=== PATIENT | female | born 1970 | race Caucasian/White ===

== ENCOUNTER 2023-02-10 07:49 | Emergency (ER) | payer OTHER ==
[2023-02-10 07:55] VITALS: RESP 16
[2023-02-10] MEDS ORDERED: ACETAMINOPHEN TAB 500 MG TAB PO STA (08:04)
--- NOTE | 2023-02-10 08:08 | ED ---
General Adult HPI - General Chief complaint: Fall Stated complaint: fall Time Seen by Provider: 02/10/23 07:52 Source: patient, EMS, RN notes reviewed Mode of arrival: ambulatory Limitations: altered mental status - History of Present Illness Initial comments: Patient is a pleasant 53-year-old female presenting to the emergency department following a fall. Patient comes from [facility]. Patient reportedly does fall frequently. Patient denies any head injury or loss of consciousness. Patient states she fell and landed on her bottom. Patient does have chronic lower back and bilateral hip pain and states she aggravated days. Patient complains of discomfort of right greater than left hip as well as somewhat of the lower back. Patient states lower back really is not much worse than normal and does not want any x-rays of it. Patient does admit to having some neck discomfort when questioned. No chest pain or dyspnea. No abdominal pain. - Related Data Allergies Allergy/AdvReac Type Severity Reaction Status Date / Time codeine Allergy Unknown Verified 02/10/23 07:50 Penicillins Allergy Unknown Verified 02/10/23 07:50 Review of Systems ROS Statement: Those systems with pertinent positive or pertinent negative responses have been documented in the HPI. ROS Other: All systems not noted in ROS Statement are negative. Constitutional: Denies: fever Eyes: Denies: eye pain ENT: Denies: ear pain Respiratory: Denies: cough Cardiovascular: Denies: chest pain Endocrine: Denies: fatigue Gastrointestinal: Denies: abdominal pain Genitourinary: Denies: dysuria Musculoskeletal: Reports: as per HPI Skin: Denies: rash Neurological: Denies: headache, weakness Past Medical History Past Medical History: Hypertension History of Any Multi-Drug Resistant Organisms: None Reported Past Surgical History: No Surgical Hx Reported Past Psychological History: Depression, Schizophrenia Smoking Status: Current every day smoker Past Alcohol Use History: None Reported Past Drug Use History: None Reported General Exam Limitations: altered mental status General appearance: alert, in no apparent distress Head exam: Present: atraumatic, normocephalic Eye exam: Present: normal appearance, PERRL Neck exam: Present: tenderness (Mild diffuse cervical tenderness) Respiratory exam: Present: normal lung sounds bilaterally Cardiovascular Exam: Present: regular rate, normal rhythm GI/Abdominal exam: Present: soft. Absent: tenderness Extremities exam: Present: full ROM, tenderness (Mild tenderness left hip. Mild to moderate tenderness right hip. Distally extremity are neurovascularly intact) Back exam: Present: normal inspection. Absent: tenderness Neurological exam: Present: alert, CN II-XII intact. Absent: motor sensory deficit Expanded Neurological exam: Present: protecting the airway Motor strength exam: RUE: 5, LUE: 5, RLE: 5, LLE: 5 Eye Response: (4) open spontaneously Motor Response: (6) obeys commands Verbal Response: (5) oriented Psychiatric exam: Present: normal affect, normal mood Skin exam: Present: normal color Course Vital Signs 02/10/23 07:50 Temperature 98.6 F Pulse Rate 103 H Respiratory 16 Rate Blood Pressure 133/76 O2 Sat by Pulse 94 L Oximetry Medical Decision Making - Medical Decision Making Was pt. sent in by a medical professional or institution ([facility], CONTRACT ATTORNEY, urgent care, hospital, or jail...) When possible be specific @ -Patient was sent from [facility] Did you speak to anyone other than the patient for history (EMS, parent, family, police, friend...)? What history was obtained from this source @ -No Did you review nursing and triage notes (agree or disagree)? Why? @ -I reviewed and agree with nursing and triage notes Were old charts reviewed (outside hosp., previous admission, EMS record, old EKG, old radiological studies, urgent care reports/EKG's, jail records)? Report findings @ -No old charts were reviewed Differential Diagnosis (chest pain, altered mental status, abdominal pain women, abdominal pain men, vaginal bleeding, weakness, fever, dyspnea, syncope, headache, dizziness, GI bleed, back pain, seizure, CVA, palpatations, mental health)? @ -not applicable EKG interpreted by me (3pts min.). @ -As above X-rays interpreted by me (1pt min.). @ -X-ray pelvis including bilateral hips does not reveal acute abnormality CT interpreted by me (1pt min.). @ -Report reviewed U/S interpreted by me (1pt. min.). @ -None done What testing was considered but not performed or refused? (CT, X-rays, U/S, labs)? Why? @ -None What meds were considered but not given or refused? Why? @ -None Did you discuss the management of the patient with other professionals (professionals i.e. Dr., PA, CONTRACT ATTORNEY, lab, RT, psych nurse, social work lecturer, trial lawyer, teacher, chief administrative officer, returned case inspector)? Give summary @ -Sheet Finisher later arrived and was updated on results and need for follow-up Was smoking cessation discussed for >3mins.? @ -No Was critical care preformed (if so, how long)? @ -No Were there social determinants of health that impacted care today? How? (Homelessness, low income, unemployed, alcoholism, drug addiction, transportation, low edu. Level, literacy, decrease access to med. care, [facility], rehab)? @ -No Was there de-escalation of care discussed even if they declined (Discuss DNR or withdrawal of care, Hospice)? DNR status @ -No What co-morbidities impacted this encounter? (DM, HTN, Smoking, COPD, CAD, Cancer, CVA, ARF, Chemo, Hep., AIDS, mental health diagnosis, sleep apnea, morbid obesity)? @ -None Was patient admitted / discharged? Hospital course, mention meds given and route, prescriptions, significant lab abnormalities, going to OR and other pertinent info. @ -Patient was given Tylenol for discomfort and recommended continue this as needed. Sheet Finisher updated on need for follow-up regarding CT results. Patient will be discharged Undiagnosed new problem with uncertain prognosis? @ -No Drug Therapy requiring intensive monitoring for toxicity (Heparin, Nitro, Insulin, Cardizem)? @ -No Were any procedures done? @ -No Diagnosis/symptom? @ -Fall, hip contusion Acute, or Chronic, or Acute on Chronic? @ -Acute Uncomplicated (without systemic symptoms) or Complicated (systemic symptoms)? @ -default Side effects of treatment? @ -No Exacerbation, Progression, or Severe Exacerbation? @ -No Poses a threat to life or bodily function? How? (Chest pain, [place], [place], pneumonia, PE, COPD, DKA, ARF, appy, cholecystitis, CVA, Diverticulitis, Homicidal, Suicidal, threat to staff... and all critical care pts) @ -No Disposition Clinical Impression: Fall, Contusion, hip Disposition: HOME SELF-CARE Condition: Stable Instructions (If sedation given, give patient instructions): Fall Prevention (ED) Additional Instructions: Please follow-up with primary care physician in the next day or 2 for recheck. Have primary care physician review CT results. Please follow-up with ENT and have them review CT results as well. Return for increased pain, weakness, worsening or change in symptoms or any other concerns. [id number] Tylenol as needed. Ice to affected areas needed. Is patient prescribed a controlled substance at d/c from ED?: No Referrals: Chapito Horowitz NPC [REFERRING] - 1-2 days Cory Gonzalez MD [STAFF PHYSICIAN] - 1-2 days Time of Disposition: 09:12
--- NOTE | 2023-02-10 08:52 | CT ---
EXAMINATION TYPE: CT cervical spine wo con DATE OF EXAM: 02/10/2023 COMPARISON: 03/01/2012 HISTORY: 53-year-old female trauma, Fall, neck pain. TECHNIQUE: Contiguous axial scanning of the cervical spine without IV contrast. Coronal and sagittal reconstructions performed. CT DLP: 381.3 mGycm Automated exposure control for dose reduction was used. FINDINGS: No craniocervical junction abnormality, predental space widening, or prevertebral soft tissue swellin g. Moderate distention plate degenerative change particularly from C5 through T1 levels with bulky anter ior endplate spondylosis which has progressed from 2012. Posterior disc osteophyte complexes at C5-C6 and C6-C7 may contribute to moderate narrowing of the sp inal canal. This has also progressed from prior. Preserved alignment of the cervical spine. No acute fracture seen of the cervical spine. Advanced hypertrophic facet arthropathy particularly towards the left in the upper to mid cervical sp ine. Anterior bridging endplate spondylosis T3-T4. Slight asymmetry right palatine tonsillar hypertrophy. This can be correlated with direct inspection when patient able. A 1.3 cm right thyroid lobe nodule increased from 8 mm second 2012 can't also be further evaluated wi th a thyroid ultrasound. At C3-C4, changes result in moderate to severe left neuroforaminal stenosis. At C5-C6, changes result in moderate left greater than right neuroforaminal stenosis. At C6/C7, changes result in [id number] left neural foraminal stenosis. IMPRESSION: 1. MODERATE SPONDYLOTIC CHANGE ESPECIALLY FROM C5 THROUGH T1 LEVELS HAS PROGRESSED FROM 2012. 2. THERE MAY BE MODERATE NARROWING OF THE SPINAL CANAL AT C5-C6 AND C6-C7. 3. VARIABLE NEUROFORAMINAL STENOSES OUTLINED ABOVE. MODERATE TO SEVERE ON THE LEFT AT C3-C4. 4. NO ACUTE FRACTURE OR MALALIGNMENT SEEN. 5. OUTPATIENT ENT REFERRAL FOR DIRECT VISUALIZATION IN THE REGION OF THE RIGHT PALATINE TONSILS GIVEN ASYMMETRIC SOFT TISSUE PROMINENCE. POSSIBLY RELATED TO ASYMMETRIC HYPERTROPHY. 6. NONEMERGENT THYROID ULTRASOUND TO ASSESS FOR AN ENLARGING 1.3 CM RIGHT THYROID NODULE.
--- NOTE | 2023-02-10 08:52 | XR ---
EXAMINATION TYPE: XR pelvis AP view DATE OF EXAM: 02/10/2023 COMPARISON: NONE HISTORY: Pain The osseous structures are intact and the joint spaces are preserved. No acute fracture is seen. Vi sualized bowel gas pattern is nonspecific. Hypertrophic arthropathy of the hips greater on the left correlate for femoral acetabular impingement. IMPRESSION: 1. No acute fracture. 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
[2023-02-10 09:25] VITALS: BP 131/79; PULSE 91; TEMP 98.1
== END 2023-02-10 09:25 | disposition home or self-care (01) ==
LOC: EEVIPCON 07:49 → EC 07:49
DX: S70.02XA Contusion of left hip, initial encounter (principal); S70.01XA Contusion of right hip, initial encounter; I10 Essential (primary) hypertension; F17.200 Nicotine dependence, unspecified, uncomplicated; Z88.0 Allergy status to penicillin; Z88.6 Allergy status to analgesic agent; W01.0XXA Fall on same level from slipping, tripping and stumbling without subsequent striking against object, initial encounter
CPT/HCPCS: 72125; 72170; 99284

== ENCOUNTER 2023-02-28 13:30 | Emergency (ER) | payer OTHER ==
[2023-02-28 13:38] VITALS: RESP 18
[2023-02-28] MEDS ORDERED: LIDOCAINE 1% INJ 10MG/ML (30 ML VIAL-PF) SQ ONE (14:51)
--- NOTE | 2023-02-28 16:14 | ED ---
General Adult HPI - General Chief complaint: Wound/Laceration Stated complaint: Rt hand injury Time Seen by Provider: 02/28/23 14:02 Source: patient, RN notes reviewed Mode of arrival: EMS Limitations: physical limitation - History of Present Illness Initial comments: 53-year-old female with no significant past medical history presents the emergency department with a chief complaint of right arm. Patient reports she was walking when she tripped and fell over a curb complaining of right hand laceration. She denies hitting her head left consciousness or anticoagulant use. He denies any dizziness, headedness chest pain, shortness of breath, headache, nausea or vomiting. - Related Data Allergies Allergy/AdvReac Type Severity Reaction Status Date / Time codeine Allergy Unknown Verified 02/28/23 13:38 Penicillins Allergy Unknown Verified 02/28/23 13:38 Review of Systems ROS Statement: Those systems with pertinent positive or pertinent negative responses have been documented in the HPI. ROS Other: All systems not noted in ROS Statement are negative. Past Medical History Past Medical History: Hypertension History of Any Multi-Drug Resistant Organisms: None Reported Past Surgical History: No Surgical Hx Reported Past Psychological History: Depression, Schizophrenia Smoking Status: Current every day smoker Past Alcohol Use History: None Reported Past Drug Use History: None Reported General Exam - General Exam Comments Initial Comments: General: Alert, in no acute distress Head: atraumatic normocephalic. Eyes PERRL, EOMI intact, mucous membranes moist Respiratory: Lungs clear to auscultation bilaterally Cardiovascular: Heart rate regular rate and rhythm Abdominal: Soft without guarding or rebound Extremities: Normal inspection with full range of motion and normal capillary refill, right hand with 2 cm laceration to palmar surface at the MTP level 2+ radial pulses distal NVI no crepitus Neuroogic: alert and oriented 3, CN II-XII intact, able to ambulate with steady gait Skin: warm dry and intact with normal color Limitations: physical limitation Course Vital Signs 02/28/23 02/28/23 13:33 16:18 Temperature 96.8 F L 98.0 F Pulse Rate 85 72 Respiratory 18 18 Rate Blood Pressure 127/70 141/84 O2 Sat by Pulse 93 L 95 Oximetry Procedures - Laceration Laceration #1 Consent Obtained: verbal consent Indication: laceration Site: other (Right Palm) Size (cm): 2 Description: linear Depth: simple, single layer Anesthetic Used: lidocaine 1% Anesthesia Technique: local infiltration Amount (mls): 10 Pre-repair: wound explored Type of Sutures: vicryl Size of Sutures: 5-0 Number of Sutures: 5 Technique: simple, interrupted Complications: pain, bleeding, nerve injury Patient Tolerated Procedure: well, no complications Additional Comments: Distal NVI remains intact status post suture placement Medical Decision Making - Medical Decision Making Was pt. sent in by a medical professional or institution (, [facility], urgent care, hospital, or jail...) When possible be specific @ -[No] Did you speak to anyone other than the patient for history (EMS, parent, family, police, friend...)? What history was obtained from this source @ -[No] Did you review nursing and triage notes (agree or disagree)? Why? @ -[I reviewed and agree with nursing and triage notes] Were old charts reviewed (outside hosp., previous admission, EMS record, old EKG, old radiological studies, urgent care reports/EKG's, jail records)? Report findings @ -[No old charts were reviewed] Differential Diagnosis (chest pain, altered mental status, abdominal pain women, abdominal pain men, vaginal bleeding, weakness, fever, dyspnea, syncope, headache, dizziness, GI bleed, back pain, seizure, CVA, palpatations, mental health, musculoskeletal)? @ -[not applicable] EKG interpreted by me (3pts min.). @ -[As above] X-rays interpreted by me (1pt min.). @ -[None done] CT interpreted by me (1pt min.). @ -[None done] U/S interpreted by me (1pt. min.). @ -[None done] What testing was considered but not performed or refused? (CT, X-rays, U/S, labs)? Why? @ -[None] What meds were considered but not given or refused? Why? @ -[None] Did you discuss the management of the patient with other professionals (professionals i.e. [facility], [facility], lab, RT, psych nurse, clinical social work therapist, supervisor front, teacher, adult probation officer, child welfare caseworker)? Give summary @ -[No] Was smoking cessation discussed for >3mins.? @ -[No] Was critical care preformed (if so, how long)? @ -[No] Were there social determinants of health that impacted care today? How? (Homelessness, low income, unemployed, alcoholism, drug addiction, transportation, low edu. Level, literacy, decrease access to med. care, shelter, rehab)? @ -[No] Was there de-escalation of care discussed even if they declined (Discuss DNR or withdrawal of care, Hospice)? DNR status @ -[No] What co-morbidities impacted this encounter? (DM, HTN, Smoking, COPD, CAD, Cancer, CVA, ARF, Chemo, Hep., AIDS, mental health diagnosis, sleep apnea, morbid obesity)? @ -[None] Was patient admitted / discharged? Hospital course, mention meds given and route, prescriptions, significant lab abnormalities, going to OR and other pertinent info. @ -Discharged. This is a 53-year-old female who presents the emergency department with hand laceration. Patient had a thorough history and physical exam performed in the ED. small laceration to right palm. No crepitus noted. Range of motion is intact. 2+ radial pulses bilaterally. Patient had 4 sutures placed for which she tolerated well. Return precautions were discussed at length. Patient discharged in stable condition. Case discussed with [facility]. [facility] who agrees with plan of care Undiagnosed new problem with uncertain prognosis? @ -[No] Drug Therapy requiring intensive monitoring for toxicity (Heparin, Nitro, Insulin, Cardizem)? @ -[No] Were any procedures done? @ -[No] Diagnosis/symptom? @ - Right hand laceration Acute, or Chronic, or Acute on Chronic? @ -Acute Uncomplicated (without systemic symptoms) or Complicated (systemic symptoms)? @ -uncomplicated Side effects of treatment? @ -[No] Exacerbation, Progression, or Severe Exacerbation? @ -[No] Poses a threat to life or bodily function? How? (Chest pain, [place], [place], pneumonia, PE, COPD, DKA, ARF, appy, cholecystitis, CVA, Diverticulitis, Homicidal, Suicidal, threat to staff... and all critical care pts) @ -low likelihood Disposition Clinical Impression: Laceration, Fall Disposition: HOME SELF-CARE Condition: Stable Instructions (If sedation given, give patient instructions): Care For Your Stitches (ED), Laceration (ED) Additional Instructions: Please return to the nearest emergency department in 7-10 days for suture removal Please return to the nearest emergency department with symptoms worsen or persist Is patient prescribed a controlled substance at d/c from ED?: No Referrals: None,Stated [Primary Care Provider] - 1-2 days Time of Disposition: 16:13
[2023-02-28 16:19] VITALS: BP 141/84; PULSE 72; TEMP 98
== END 2023-02-28 16:51 | disposition home or self-care (01) ==
LOC: EC 13:30
DX: S61.411A Laceration without foreign body of right hand, initial encounter (principal); I10 Essential (primary) hypertension; F17.200 Nicotine dependence, unspecified, uncomplicated; Z88.0 Allergy status to penicillin; Z86.59 Personal history of other mental and behavioral disorders; W01.0XXA Fall on same level from slipping, tripping and stumbling without subsequent striking against object, initial encounter
CPT/HCPCS: 99284; 12001; J2001

== ENCOUNTER 2023-12-08 06:58 | Emergency (ER) | payer MEDICARE, OTHER ==
--- NOTE | 2023-12-08 07:36 | ED ---
General Adult HPI - General Chief complaint: Fever Stated complaint: FEVER Time Seen by Provider: 12/08/23 07:00 Source: patient, EMS, RN notes reviewed Mode of arrival: EMS Limitations: no limitations - History of Present Illness Initial comments: Patient is a pleasant 53-year-old female present to the emergency department not feeling well. Patient states symptoms started yesterday. Patient states she was tested positive for flu. Patient states she feels tired and achy all over. Occasional cough. - Related Data Allergies Allergy/AdvReac Type Severity Reaction Status Date / Time codeine Allergy Unknown Verified 02/28/23 13:38 Penicillins Allergy Unknown Verified 02/28/23 13:38 Review of Systems ROS Statement: Those systems with pertinent positive or pertinent negative responses have been documented in the HPI. ROS Other: All systems not noted in ROS Statement are negative. Constitutional: Reports: fever, chills Eyes: Denies: eye pain ENT: Denies: ear pain Respiratory: Reports: as per HPI, cough Cardiovascular: Denies: chest pain Endocrine: Reports: fatigue Gastrointestinal: Denies: abdominal pain, nausea, vomiting Past Medical History Past Medical History: Hypertension History of Any Multi-Drug Resistant Organisms: None Reported Past Surgical History: No Surgical Hx Reported Past Psychological History: Depression, Schizophrenia Smoking Status: Current every day smoker Past Alcohol Use History: None Reported Past Drug Use History: None Reported General Exam Limitations: no limitations General appearance: alert, in no apparent distress Head exam: Present: atraumatic Eye exam: Present: normal appearance ENT exam: Present: normal oropharynx Neck exam: Present: normal inspection Respiratory exam: Present: normal lung sounds bilaterally Cardiovascular Exam: Present: tachycardia GI/Abdominal exam: Present: soft. Absent: tenderness Extremities exam: Present: normal inspection Neurological exam: Present: alert, oriented X3. Absent: motor sensory deficit Expanded Eye Response: (4) open spontaneously Motor Response: (6) obeys commands Verbal Response: (5) oriented Psychiatric exam: Present: normal affect, normal mood Skin exam: Present: normal color Course Vital Signs 12/08/23 12/08/23 12/08/23 07:04 07:08 08:07 Temperature 104 F H 101.6 F H Pulse Rate 124 H 117 H Respiratory 20 22 18 Rate Blood Pressure 151/94 O2 Sat by Pulse 97 98 Oximetry 12/08/23 09:00 Temperature 100.5 F H Pulse Rate 118 H Respiratory 20 Rate Blood Pressure 112/77 O2 Sat by Pulse 92 L Oximetry Medical Decision Making - Medical Decision Making Was pt. sent in by a medical professional or institution ([facility], TRACK REPAIR WORKER, urgent care, hospital, or prison...) When possible be specific @ -Patient comes from a intermediate Did you speak to anyone other than the patient for history (EMS, parent, family, police, friend...)? What history was obtained from this source @ -Laborer Mine arrives later and provides history including patient being very fatigued and positive diagnosis of influenza yesterday. Did you review nursing and triage notes (agree or disagree)? Why? @ -Yes reviewed and agree Were old charts reviewed (outside hosp., previous admission, EMS record, old EKG, old radiological studies, urgent care reports/EKG's, prison records)? Report findings @ -Previous chest x-ray reviewed Differential Diagnosis (chest pain, altered mental status, abdominal pain women, abdominal pain men, vaginal bleeding, weakness, fever, dyspnea, syncope, headache, dizziness, GI bleed, back pain, seizure, CVA, palpatations, mental health, musculoskeletal)? @ -Differential Fever: Pneumonia, viral URI, endocarditis, myocarditis, pericarditis, otitis, sinusitis, peritonsillar Abscess, retropharyngeal Abscess, epiglottitis, peritonitis, appendicitis, Ling cystitis, diverticulitis, hepatitis, colitis, UTI, PID, TOA, pyelonephritis, prostatitis, epididymitis, meningitis, encephalit is, pulmonary embolism, CVA, thyroid storm, pancreatitis, adrenal crisis, cavernous sinus thrombosis, this is not meant to be an all-inclusive list. EKG interpreted by me (3pts min.). @ -As above X-rays interpreted by me (1pt min.). @ -Chest x-ray shows nonspecific changes, possible interstitial changes CT interpreted by me (1pt min.). @ -None done U/S interpreted by me (1pt. min.). @ -None done What testing was considered but not performed or refused? (CT, X-rays, U/S, labs)? Why? @ -None What meds were considered but not given or refused? Why? @ -None Did you discuss the management of the patient with other professionals (professionals i.e. , PA, TRACK REPAIR WORKER, lab, RT, psych nurse, social media community manager, journeyman press operator, teacher, mounted police officer, correctional counselor/case manager)? Give summary @ -Laborer Mine also for history and providing results Was smoking cessation discussed for >3mins.? @ -No Was critical care preformed (if so, how long)? @ -No Were there social determinants of health that impacted care today? How? (Homelessness, low income, unemployed, alcoholism, drug addiction, transportation, low edu. Level, literacy, decrease access to med. care, [facility], rehab)? @ -No Was there de-escalation of care discussed even if they declined (Discuss DNR or withdrawal of care, Hospice)? DNR status @ -No What co-morbidities impacted this encounter? (DM, HTN, Smoking, COPD, CAD, Cancer, CVA, ARF, Chemo, Hep., AIDS, mental health diagnosis, sleep apnea, morbid obesity)? @ -None Was patient admitted / discharged? Hospital course, mention meds given and route, prescriptions, significant lab abnormalities, going to OR and other pertinent info. @ -Patient presents with diagnosis of flu and for fever and fatigue and general weakness. Patient received Tylenol Motrin and feels much better. Patient and outdoor illuminating engineer updated on results. Patient is already on Tamiflu Undiagnosed new problem with uncertain prognosis? @ -No Drug Therapy requiring intensive monitoring for toxicity (Heparin, Nitro, Insulin, Cardizem)? @ -No Were any procedures done? @ -No Diagnosis/symptom? @ -Influenza Acute, or Chronic, or Acute on Chronic? @ -Acute Uncomplicated (without systemic symptoms) or Complicated (systemic symptoms)? @ -Default Side effects of treatment? @ -No Exacerbation, Progression, or Severe Exacerbation? @ -No Poses a threat to life or bodily function? How? (Chest pain, [place], [place], pneumonia, PE, COPD, DKA, ARF, appy, cholecystitis, CVA, Diverticulitis, Homicidal, Suicidal, threat to staff... and all critical care pts) @ -No - Lab Data Result diagrams: 12/08/23 07:54 12/08/23 07:54 Lab Results 12/08/23 12/08/23 Range/Units 07:54 07:54 WBC 10.2 (3.8-10.6) k/uL RBC 3.92 (3.80-5.40) m/uL Hgb 13.2 (11.4-16.0) gm/dL Hct 39.5 (34.0-46.0) % MCV 100.8 H (80.0-100.0) fL MCH 33.8 (25.0-35.0) pg MCHC 33.5 (31.0-37.0) g/dL RDW 13.1 (11.5-15.5) % Plt Count 144 L (150-450) k/uL MPV 7.2 Neutrophils % 83 % Lymphocytes % 8 % Monocytes % 7 % Eosinophils % 0 % Basophils % 0 % Neutrophils # 8.5 H (1.3-7.7) k/uL Lymphocytes # 0.8 L (1.0-4.8) k/uL Monocytes # 0.7 (0-1.0) k/uL Eosinophils # 0.0 (0-0.7) k/uL Basophils # 0.0 (0-0.2) k/uL Sodium 138 (137-145) mmol/L Potassium 3.9 (3.5-5.1) mmol/L Chloride 108 H (98-107) mmol/L Carbon Dioxide 23 (22-30) mmol/L Anion Gap 7 mmol/L BUN 10 (7-17) mg/dL Creatinine 0.47 L (0.52-1.04) mg/dL Est GFR (CKD-EPI)AfAm >90 (>60 ml/min/1.73 sqM) Est GFR (CKD-EPI)NonAf >90 (>60 ml/min/1.73 sqM) Glucose 164 H (74-99) mg/dL Calcium 8.1 L (8.4-10.2) mg/dL Total Bilirubin 0.5 (0.2-1.3) mg/dL AST 44 H (14-36) U/L ALT 48 H (4-34) U/L Alkaline Phosphatase 73 (38-126) U/L Total Protein 6.4 (6.3-8.2) g/dL Albumin 3.4 L (3.5-5.0) g/dL Disposition Clinical Impression: Influenza Disposition: HOME SELF-CARE Condition: Stable Instructions (If sedation given, give patient instructions): Fever in Adults (ED), Influenza (ED) Additional Instructions: Tamiflu as directed. [id number] Tylenol and Motrin as needed. Please follow-up with primary care physician in the next couple of days for recheck. Return for increased weakness, difficulty breathing, uncontrolled fever, worsening symptoms or other concerns Is patient prescribed a controlled substance at d/c from ED?: No Referrals: Moustapha Patel MD [Primary Care Provider] - 1-2 days Time of Disposition: 09:45
[2023-12-08] MEDS: SODIUM CHLORIDE 0.9% 1,000 ML IV STA (07:56)
[2023-12-08] MEDS: ACETAMINOPHEN TAB 500 MG TAB PO STA (07:57)
[2023-12-08] MEDS: IBUPROFEN 600 MG TAB PO STA (07:58)
[2023-12-08 08:08] LABS: Basophils % (A) 0 %; Eosinophils % (A) 0 %; HCT 39.5 % (34.0-46.0); HGB 13.2 gm/dL (11.4-16.0); Lymphocytes # (A) 0.8 k/uL (1.0-4.8); Lymphocytes % (A) 8 %; MCH 33.8 pg (25.0-35.0); MCHC 33.5 g/dL (31.0-37.0); MCV 100.8 fL (80.0-100.0); Mean Platelet Volume 7.2; Monocytes # (A) 0.7 k/uL (0-1.0); Monocytes % (A) 7 %; Neutrophils # (A) 8.5 k/uL (1.3-7.7); Neutrophils % (A) 83 %; Platelet Count 144 k/uL (150-450); RBC 3.92 m/uL (3.80-5.40); RDW 13.1 % (11.5-15.5); WBC 10.2 k/uL (3.8-10.6)
[2023-12-08 08:28] LABS: ALT 48 U/L (4-34); AST 44 U/L (14-36); African American GFR (CKD) >90 (>60 ml/min/1.73 sqM); Albumin 3.4 g/dL (3.5-5.0); Alkaline Phosphatase 73 U/L (38-126); Anion Gap 7 mmol/L; Blood Urea Nitrogen 10 mg/dL (7-17); Calcium 8.1 mg/dL (8.4-10.2); Carbon Dioxide 23 mmol/L (22-30); Chloride 108 mmol/L (98-107); Glucose 164 mg/dL (74-99); Non-African American GFR(CKD) >90 (>60 ml/min/1.73 sqM); Sodium 138 mmol/L (137-145); Total Bilirubin 0.5 mg/dL (0.2-1.3); Total Protein 6.4 g/dL (6.3-8.2)
[2023-12-08 08:29] LABS: Potassium 3.9 mmol/L (3.5-5.1)
--- NOTE | 2023-12-08 08:35 | XR ---
EXAMINATION TYPE: XR chest 2V DATE OF EXAM: 12/08/2023 COMPARISON: 03/05/2012 HISTORY: 53-year-old female with fever TECHNIQUE: AP and lateral views FINDINGS: Heart upper limits of normal in size. Prominent rightward patient rotation alters the normal cardiome diastinal contours. This may account for the differential density over the left hemithorax. Some mild breathing motion is also present. Unable to exclude subtle hazy interstitial densities. No pleural e ffusion. IMPRESSION: Portable exam further limited by patient body habitus, some motion, and rightward patient rotation. U nable to exclude underlying hazy interstitial densities that could reflect an atypical pneumonia vers us artifacts.
[2023-12-08 09:33] VITALS: TEMP 100.5
[2023-12-08 10:06] VITALS: BP 124/73; PULSE 120; RESP 17
== END 2023-12-08 09:59 | disposition home or self-care (01) ==
LOC: EC 06:58 → SUPCPDRO 06:58 → EC 09:59
DX: J11.1 Influenza due to unidentified influenza virus with other respiratory manifestations (principal); F17.200 Nicotine dependence, unspecified, uncomplicated; I10 Essential (primary) hypertension; Z88.0 Allergy status to penicillin; Z88.5 Allergy status to narcotic agent; Z86.59 Personal history of other mental and behavioral disorders
CPT/HCPCS: 36415; 71046; 80053; 85025; 96360; 99284

== ENCOUNTER → 2024-04-03 | Outpatient (CLI) | payer MEDICARE, OTHER ==
--- NOTE | 2024-04-03 11:43 | FL ---
COMPARISON: NONE DATE OF EXAM: 04/03/2024 HISTORY: Dysphagia A number of thin and thick substances were ingested under the care of the department of speech pathol ogy. There is no evidence of aspiration or penetration. There is no evidence of obstruction. DAP are not provided. No images submitted. 51 seconds of fluoroscopy. IMPRESSION: 1. No evidence of aspiration or penetration.
== END | disposition home or self-care (01) ==
LOC: RADFLMAIN 11:01
PROVIDERS: ATTEND General Practice
DX: R13.10 Dysphagia, unspecified (principal); G40.909 Epilepsy, unspecified, not intractable, without status epilepticus; Z79.899 Other long term (current) drug therapy
CPT/HCPCS: 74230

== ENCOUNTER → 2024-10-31 | Outpatient (CLI) | payer MEDICARE, OTHER ==
--- NOTE | 2024-10-31 10:04 | MR ---
EXAMINATION TYPE: MR brain wo con DATE OF EXAM: 10/31/2024 9:23 AM COMPARISON: None. CLINICAL INDICATION: Female, 54 years old with history of R41.0 DISORIENTATION, Disorientation, histo ry of seizure, schizoaffective disorder, bipolar type TECHNIQUE: Multiplanar, multisequence images of the brain and brainstem were acquired without IV con trast. Diffusion weighted imaging is performed. FINDINGS: No evidence for acute infarction, hemorrhage, mass, mass effect, midline shift, herniation, effacemen t of basal cisterns, or extra-axial fluid collection. There is mild to moderate generalized supratentorial volume loss. Secondary mild prominence to the ve ntricular system. Major intracranial flow voids are intact. T2/FLAIR weighted sequences show mild confluent burden of periventricular bright signal change. Midline structures demonstrate normal morphology. The craniocervical junction is normal. Post contrast images demonstrate no evidence of pathologic enhancement. Dural venous sinuses are pat ent. Moderate mucosal thickening throughout the ethmoid air cells. Globes are intact. Extensive fluid opac ification right mastoid air cells. IMPRESSION: 1. Mild to moderate generalized cerebral atrophy. Mild burden of chronic small vessel ischemic diseas e. 2. No acute intracranial abnormality seen. 3. Extensive fluid right mastoid air cells. Correlate for any mastoid pain to exclude mastoiditis. 4. Moderate chronic ethmoid sinus disease. [facility], , 10/31/2024 10:02 AM
== END | disposition home or self-care (01) ==
LOC: RADMRIMAIN 08:35
PROVIDERS: ATTEND Psychiatry & Neurology Neurology
DX: I67.82 Cerebral ischemia (principal); J32.2 Chronic ethmoidal sinusitis; F25.0 Schizoaffective disorder, bipolar type; R41.0 Disorientation, unspecified; G31.9 Degenerative disease of nervous system, unspecified; Z87.898 Personal history of other specified conditions
CPT/HCPCS: 70551

== ENCOUNTER → 2025-01-22 | Outpatient (CLI) | payer MEDICARE, OTHER ==
--- NOTE | 2025-01-22 14:41 | MM ---
Reason for Exam: Screening (asymptomatic). Patient History: Menarche at age 14. Postmenopausal. Risk Values: Saira 5 year model risk: 0.8%. NCI Lifetime model risk: 5.5%. Prior Study Comparison: No prior studies available for comparison. Tissue Density: The breasts are heterogeneously dense, which may obscure small masses. Findings: Analyzed By CAD. There is no suspicious group of microcalcifications or new suspicious mass in either breast. Overall Assessment: Negative, BI-RAD 1 Management: Screening Mammogram of both breasts in 1 year. . Patient should continue monthly self-breast exams. A clinical breast exam by your physician is recommended on an annual basis. This exam should not preclude additional follow-up of suspicious palpable abnormalities. Note on Saira scores and lifetime risk: 1. A Saira score greater than 3% is considered moderate risk. If this is the case, consider specialist referral to assess eligibility for a risk reducing agent. 2. If overall lifetime risk for the development of breast cancer is 20% or higher, the patient may qualify for future screening with alternating mammogram and breast MRI. [facility], , 01/22/2025 2:38 PM. Electronically signed and approved by: Rolf Sloan M.D. Radiologis
== END | disposition home or self-care (01) ==
LOC: RADMAMWWP 13:45
PROVIDERS: ATTEND General Practice
DX: Z12.31 Encounter for screening mammogram for malignant neoplasm of breast (principal); R92.333 Mammographic heterogeneous density, bilateral breasts; Z78.0 Asymptomatic menopausal state
CPT/HCPCS: 77063; 77067